=== PATIENT | female | born 1975 | race Caucasian/White ===

== ENCOUNTER 2018-08-31 21:53 | Inpatient (IN) | payer OTHER ==
[~2018-08-31] VITALS: Ht 162.6 cm; Wt 103.0 kg
--- NOTE | ~2018-08-31 | OP ---
[address] [address] OPERATIVE REPORT Name: ANNETTEREGLA M Room: [address] IN M.R.#: [id number] Admission: 08/31/18 Attend Phys: Trice Dos Santos MD Discharge: Date of : 77 Report #: [id number] THIS REPORT FOR: //name// CC: Kenzie Perez DO, PGY-3, dictating operative report on behalf of Dr. Merrill Ariza. PREOPERATIVE DIAGNOSES: Gallstone pancreatitis and acute cholecystitis. POSTOPERATIVE DIAGNOSES: Gallstone pancreatitis and acute cholecystitis. PROCEDURE PERFORMED: Laparoscopic cholecystectomy with intraoperative cholangiogram and Firefly evaluation of the biliary system. SURGEON: Merrill Ariza DO CO-SURGEON: Ajit Perez DO, PGY-3. PIT AND AUXILIARIES SUPERVISOR: None. ANESTHESIA: General and local. FINDINGS: Acute cholecystitis with a normal biliary anatomy. COMPLICATIONS: None. SPECIMEN: Gallbladder. ESTIMATED BLOOD LOSS: 20. HISTORY OF PRESENT ILLNESS: The patient is a 43-year-old female, who presented with right upper quadrant abdominal pain, was found to have acute pancreatitis, suspected to be related to gallstones. She did have some elevated LFTs that progressively improved, indicating that the stone likely passed. MRCP was negative. We elected to proceed with laparoscopic cholecystectomy with intraoperative cholangiogram. She agreed after risks, complications and benefits were discussed at length. DESCRIPTION OF PROCEDURE: After consent was obtained, she was taken to the operating room, placed in supine position, SCDs applied to the bilateral lower extremities, safety belt placed across the patient's waist. Antibiotics were given for surgical prophylaxis. The patient underwent general anesthesia and intubation without any complication. The patient was then prepped and draped in the standard sterile fashion. Timeout was performed to confirm the patient and procedure. A vertical incision was made just above the umbilicus with an 11 blade scalpel. Electrocautery was used for hemostasis [place] [address] OPERATIVE REPORT Name: REGLA BRYANT Room: [address] IN [facility]#: [id number] Admission: 08/31/18 Attend Phys: Trice Dos Santos MD Discharge: Date of : 77 Report #: [id number] the level of the fascia. Once the fascia was encountered, it was scored with electrocautery and grasped between 2 Kochers. Hemostat was used to bluntly enter the peritoneum. Two stitches of 0 Vicryl were placed on either side of the fascia. A 5 mm Pierce trocar was inserted into the abdomen. Insufflation was initiated without complication. The camera was inserted into the abdomen. Intraabdominal contents were inspected. There was evidence of some edema in the right upper quadrant around the gallbladder. Second 11 mm trocar was placed subxiphoid under direct visualization. The patient was placed in reverse Trendelenburg and rotated towards the left. The gallbladder was then seen underneath the edge of the liver with multiple adhesions indicating acute cholecystitis. Two more 5 mm trocars were placed in the right upper quadrant under direct visualization. Gallbladder was grasped and elevated. All the adhesions to the gallbladder were taken down with hook electrocautery. Once the adhesions were taken down safely, Firefly was used to evaluate the biliary system. There was a slight evidence of where the cystic duct would be. The common bile duct could be seen on the medial and inferior aspect of the gallbladder and this was well out of our operative field. Attention was then turned towards dissecting out the cystic duct. This was done with hook electrocautery and blunt dissection with the [place]. Once the cystic duct was isolated and could be seen going easily up into the gallbladder, Firefly was again initiated confirming that this was away from our common bile duct, could be seen going down into the common bile duct. Once the cystic duct was completely cleaned off, a clip was placed at the most proximal portion of the duct and it was cut just below this clip. An Angiocath was inserted in the abdomen and our cholangiogram catheter was placed into the cystic duct. Another clip was placed to secure this catheter. At this time, fluoroscopy was brought into the room and the biliary system was evaluated with contrast. Contrast could be seen flowing easily down into the cystic duct, common bile duct and into the duodenum without any evidence of obstruction. Pictures were taken and saved. After we were certain that there was no cystic or common bile duct or cystic duct obstruction, the catheter was removed from the abdomen, 3 clips were placed on the distal end of the cystic duct and the structure was cut. Attention was then turned towards isolating the cystic artery, and the cystic artery was just medial to where our cystic duct was cut. This was isolated using a combination of hook electrocautery and [place] dissection. Once the cystic artery was easily seen going up into the gallbladder, 2 clips were placed, one distal and one proximal on the structure and it was cut. Hook electrocautery was then used to dissect the gallbladder off the edge of the liver. Hemostasis was completely ensured in the liver bed. The gallbladder was placed into the laparoscopic EndoCatch bag. The liver bed was inspected for hemostasis. Once hemostasis was completely ensured, we did look back at our clips. There was no evidence of bile or blood leak from the clips, indicating good placement. All trocars were then removed under direct visualization. The gallbladder and its contents were removed from the supraumbilical trocar site. There was evidence of cholelithiasis and cholecystitis. Supraumbilical fascia was closed with 2 stitches of 0 Vicryl in a [id number] [place] [address] OPERATIVE REPORT Name: REGLA BRYANT Room: [address] IN [facility].#: [id number] Admission: 08/31/18 Attend Phys: Trice Dos Santos MD Discharge: Date of : 77 Report #: [id number] incisions were closed with 4-0 Monocryl. Sterile dressings were applied. All counts were correct x 2 at the end of the case. The patient was awoken from general anesthesia and sent to PACU in stable condition. By: 0732 [id number] Perez DO /raj
[2018-08-31 22:04] VITALS: BP 144/54
[2018-08-31 22:27] LABS: ABSOLUTE EOSINOPHILS 0.1 thou/uL (0.0-0.7); ABSOLUTE LYMPHOCYTES 2.8 thou/uL (0.8-5.3); ABSOLUTE MONOCYTES 0.4 thou/uL (0.0-1.2); ABSOLUTE NEUTROPHILS 7.1 thou/uL (1.6-8.1); BASOPHILS 0.3 %; EOSINOPHILS 1.1 %; HEMATOCRIT 41.8 % (37.0-47.0); LYMPHOCYTES 26.8 %; MCH 30.4 pg (26.0-34.0); MCHC 33.5 g/dL (28.0-37.0); MCV 90.9 fL (80.0-100.0); MONOCYTES 4.2 %; NUCLEATED RBCS 0 /100WBC; PLATELET COUNT* 214 thou/uL (150-400); POLYS 67.6 %; RDW-CV 13.1 % (10.5-14.5); WBC 10.5 thou/uL (4.0-11.0)
[2018-08-31 22:28] LABS: URINE BILIRUBIN NEGATIVE (Negative); URINE BLOOD NEGATIVE (Negative); URINE CLARITY CLEAR; URINE COLOR YELLOW; URINE GLUCOSE-RANDOM NEGATIVE (Negative); URINE KETONES NEGATIVE (Negative); URINE LEUKOCYTES-REFLEX NEGATIVE (Negative); URINE NITRITE-REFLEX NEGATIVE (Negative); URINE PROTEIN NEGATIVE (Negative); URINE SPECIFIC GRAVITY <= 1.005 (1.005-1.030); URINE UROBILINOGEN 0.2 E.U./dl (0.2-1.0)
[2018-08-31 22:44] LABS: CALCIUM 9.1 mg/dL (8.5-10.1); CREATININE 0.9 mg/dL (0.6-1.3); POTASSIUM 3.3 mmol/L (3.5-5.1)
[2018-08-31 22:49] LABS: ALBUMIN 3.9 g/dL (3.4-5.0); TOTAL BILIRUBIN 1.4 mg/dL (<0.1-1.0)
[2018-09-01 00:41] VITALS: BP 113/69
[2018-09-01 00:45] VITALS: BP 137/79
--- NOTE | 2018-09-01 01:21 | NUR ---
0032 ALERT AND ORIENTED X 4 FEMALE PATIENT TO ROOM 109 BY CART FROM ER IN STABLE CONDITION. TRANSFERED SBA FROM CART TO BR. VOID WITHOUT DIFFICULTY. ADMISSION ROUTINES IN PROGRESS. GI CONSULT AM. VITAL SIGNS STABLE. ABDOMINAL PAIN 07/27. PAIN MED PROVIDED PER ORDER. NO NAUSEA. ORIENTED TO ROOM, BED, ROUTINES AND PLAN OF CARE. PATIENT VERBALIZES UNDERSTANDING AND IN AGREEMENT. AT BEDSIDE. CONTINUE TO MONITOR.
--- NOTE | 2018-09-01 05:26 | NUR ---
PATIENT RESTING QUIETLY AT HOURLY ROUNDS FROM ARRIVAL TO UNIT. MEDICATED X 1 ONLY OF THIS WRITING SINCE ARRIVAL TO UNIT. AT BEDSIDE. IVF'S PER ORDER. GI CONSULT THIS AM. CONTINUE TO MONITOR.
--- NOTE | 2018-09-01 11:43 | NUR ---
MET WITH PT TO DISCUSS HOME SITUATION/DC PLANNING. PT LIVES WITH SPOUSE, IS INDEPENDENT AND ACTIVE. USES NO EQUIPMENT. PT DENIES ANY DC NEEDS AT THIS TIME. WILL FOLLOW
[2018-09-01 17:05] VITALS: BP 115/63
--- NOTE | 2018-09-01 18:25 | NUR ---
ASSUMED CARE OF PAGTIENT AT APPROX 0730. ALERT AND ORIENTED X4. ASSESSMENT COMPLETED AND CHARTED. VSS ON ROOM AIR. COMPLAINTS OF NAUSEA AND PAIN MANAGED WITH IV MEDICATIONS. FLUIDS INFUSED ORDERED. PATIENT ADVANCED TO CLEAR LIQUID DIET BY GI THIS AFTERNOON, TOLERATED IT WELL. IV IN LEFT AC STARTED LEAKING, NEW LINE PLACED IN LEFT FOREARM. PATIENT UP AD CHRIS. HOURLY ROUNDS COMPLETED. CALL LIGHT WITHIN REACH. WILL CONTINUE TO MONITOR.
[2018-09-01 20:00] VITALS: BP 120/72
--- NOTE | 2018-09-02 05:14 | NUR ---
PT SLEPT MOST OF SHIFT. ASSESSMENT DOCUMENTED. IV PATENT, FLUIDS INFUSING. NO REPORTS OF PAIN THIS SHIFT, PT REPORTED MILD NAUSEA BUT DID NOT WANT NAUSEA MEDS. FAMILY AT BEDSIDE. WILL CONTINUE WITH PLAN OF CARE.
[2018-09-02 05:25] LABS: ABSOLUTE EOSINOPHILS 0.1 thou/uL (0.0-0.7); ABSOLUTE LYMPHOCYTES 2.2 thou/uL (0.8-5.3); ABSOLUTE MONOCYTES 0.3 thou/uL (0.0-1.2); BASOPHILS 0.3 %; EOSINOPHILS 2.5 %; HEMATOCRIT 34.8 % (37.0-47.0); LYMPHOCYTES 38.9 %; MCH 30.9 pg (26.0-34.0); MCHC 33.9 g/dL (28.0-37.0); MCV 91.2 fL (80.0-100.0); MONOCYTES 5.9 %; MPV 9.7 fl. (7.2-11.1); NUCLEATED RBCS 0 /100WBC; PLATELET COUNT* 154 thou/uL (150-400); POLYS 52.4 %; RBC 3.81 mil/uL (4.20-5.00); RDW-CV 12.9 % (10.5-14.5); WBC 5.6 thou/uL (4.0-11.0)
[2018-09-02 05:34] LABS: HEMOGLOBIN 11.8 gm/dL (12.0-15.0)
[2018-09-02 05:47] LABS: CALCIUM 8.8 mg/dL (8.5-10.1); CREATININE 0.8 mg/dL (0.6-1.3); POTASSIUM 3.9 mmol/L (3.5-5.1)
[2018-09-02 07:20] LABS: ALBUMIN 2.8 g/dL (3.4-5.0); DIRECT BILIRUBIN 0.4 mg/dL (<0.1-0.3); TOTAL BILIRUBIN 1.1 mg/dL (<0.1-1.0); TOTAL PROTEIN 5.7 g/dL (6.4-8.2)
[2018-09-02 07:50] VITALS: BP 132/78
[2018-09-02 16:00] VITALS: BP 138/80
--- NOTE | 2018-09-02 18:59 | NUR ---
ASSUMED CARE OF PATIENT AT APPROX 0730. ALERT AND ORIENTED X4. ASSESSMENT COMPLETED AND CHARTED. VSS ON ROOM AIR. NO COMPLAINTS OF PAIN OR NAUSEA. FLUIDS INFUSED ORDERED. PATIENT TO PACU AT APPROX 1600 AND HAS NOT RETURNED TO UNIT AT THIS TIME. HOURLY ROUNDS COMPLETED WHILE ON UNIT. WILL CONTINUE TO MONITOR UPON RETURN TO UNIT.
[2018-09-02 21:05] VITALS: BP 148/84
[2018-09-03] VITALS: BP 145/70
[2018-09-03 04:00] VITALS: BP 116/67
[2018-09-03 04:20] LABS: ABSOLUTE LYMPHOCYTES 0.8 thou/uL (0.8-5.3); ABSOLUTE MONOCYTES 0.2 thou/uL (0.0-1.2); ABSOLUTE NEUTROPHILS 8.4 thou/uL (1.6-8.1); BASOPHILS 0.3 %; HEMATOCRIT 37.2 % (37.0-47.0); HEMOGLOBIN 12.4 gm/dL (12.0-15.0); LYMPHOCYTES 8.9 %; MCH 30.6 pg (26.0-34.0); MCHC 33.4 g/dL (28.0-37.0); MCV 91.5 fL (80.0-100.0); MONOCYTES 2.1 %; MPV 9.5 fl. (7.2-11.1); NUCLEATED RBCS 0 /100WBC; PLATELET COUNT* 187 thou/uL (150-400); POLYS 88.7 %; RBC 4.06 mil/uL (4.20-5.00); RDW-CV 12.6 % (10.5-14.5); WBC 9.5 thou/uL (4.0-11.0)
[2018-09-03 04:36] LABS: ALBUMIN 2.8 g/dL (3.4-5.0); CALCIUM 8.8 mg/dL (8.5-10.1); CREATININE 0.7 mg/dL (0.6-1.3); POTASSIUM 3.8 mmol/L (3.5-5.1); TOTAL BILIRUBIN 0.8 mg/dL (<0.1-1.0); TOTAL PROTEIN 6.5 g/dL (6.4-8.2)
--- NOTE | 2018-09-03 06:23 | NUR ---
Arrived to floor at 2105. She had a Lap Sammi. She has lapsites x 4 w/gauze and medipore tape that are all dry and intact. She has abdominal pain and has been requesting IV morphine for pain every 2 hours. Vitals are stable, roomair sat is > 96%. She is up independently to the bathroom, she voided adequately post op. She denies nausea. She has tolerated oral fluids and some sherbert this shift. She has slept intermittenly.
[2018-09-03 10:17] VITALS: BP 116/67
[2018-09-03] MEDS ORDERED: NORCO 5-325 TA1 EAC1 PO (10:22)
[2018-09-03 10:42] VITALS: BP 116/67
--- NOTE | 2018-09-03 10:44 | NUR ---
ASSESSMENT COMPLETE. PT GIVEN DC INSTRUCTIONS AND PRESCRIPTION FOR PAIN MEDICATION. PT VERBALIZES UNDERSTANDING. PT HAS FOLLOW UP APPOINTMENT MADE WITH DR VELÁSQUEZ NEXT WEEK. IV TAKEN OUT WITHOUT COMPLICATION. PT TOLERATED BREAKFAST. SEE ASSESSMENT AND VITALS FOR OTHER DETAILS.
--- NOTE | 2018-09-03 20:16 | CON ---
[address] [address] CONSULTATION Name: REGLA BRYANT Room: [address] IN M.R.#: [id number] Admission: 08/31/18 Attend Phys: Trice Dos Santos MD Discharge: 09/03/18 Date of : 77 Report #: [id number] THIS REPORT FOR: //name// CC: Kenzie Dos Santos DICTATED BY: Mena Florence [facility] DATE OF SERVICE: 09/01/2018 Please note at the time of this dictation, the patient was seen and physically examined by myself. REASONS FOR CONSULTATION: Abdominal pain, elevated liver function tests, elevated lipase, and nausea. HISTORY OF PRESENT ILLNESS: This is a 43-year-old female, who presented to the emergency room with significant right upper quadrant pain and nausea that was significantly worse than her previous 2 episodes that she has had of this similar pain. She did experience some nausea with this; however, previously, her pain had gone away on its own on the second episode and did not need to seek any further evaluation. Her first episode, which was about 2 months ago, she went to [facility]. CT, ultrasound, and labs were all completely normal at that time. She was given some pain medicine and told to go home. The second episode occurred on her way to [place] for vacation. She states it was very mild and she was able to work through it and did not reoccur. It was very short lived. However, this third episode was significantly worse. The patient has lost a total of about 75 pounds since March when she underwent a gastric sleeve operation with Dr. Issac ojeda at [facility]. The patient has never seen any GI providers in the past. ALLERGIES: No known drug allergies. MEDICATIONS FROM HOME: None. PAST MEDICAL HISTORY: Negative. PAST SURGICAL HISTORY: Gastric sleeve with hernia repair in 03/2018. FAMILY HISTORY: Sister, ovarian cancer stage 4, otherwise negative. SOCIAL HISTORY: ; denies any alcohol, tobacco, or illegal drug use at this time. REVIEW OF SYSTEMS: Twelve-point review [place] [address] CONSULTATION Name: REGLA BRYANT Room: [address]#: [id number] Admission: 08/31/18 Attend Phys: Trice Dos Santos MD Discharge: 09/03/18 Date of : 77 Report #: [id number] except what is mentioned in the HPI. PHYSICAL EXAMINATION: VITAL SIGNS: Temperature 36.8, pulse 99, respirations 16, and blood pressure 137/79. HEART: Regular rate and rhythm. LUNGS: Clear. ABDOMEN: Soft, positive bowel sounds in all 4 quadrants with some right upper quadrant tenderness noted to palpation. LABORATORY DATA: Hemoglobin 14, white count is 10.5, platelets 214, GFR 69, total bilirubin 1.4, alkaline phosphatase 80, ALT 74, AST is 117, and lipase is 2594. IMAGING: CT shows gallbladder distention. Pancreas is completely normal with no ductal dilatation. Ultrasound shows multiple layering calculi with thickening and distention of the gallbladder. IMPRESSION: 1. Right upper quadrant pain. 2. Nausea. 3. Elevated liver function tests. 4. Elevated lipase. 5. Recent weight loss of greater than 70 pounds since March. 6. Family history of ovarian cancer, sister, stage 4. PLAN: 1. MRCP today at 1300. 2. Rechecking CBC and CMP tomorrow in the morning. 3. Further recommendations will depend on MRCP and when Dr. Smart sees the patient later to make further recommendations. 4. The patient will need an outpatient colonoscopy given her strong family history of ovarian cancer in a sister in her 40s. Thank you for allowing us to participate in this patient's care. Please do not hesitate to call with any questions in regard to this consult. <ELECTRONICALLY SIGNED> By: Robert Smart MD 09/03/182015 1226 1933Robert Smart MD /nt
--- NOTE | 2018-09-04 18:06 | PATH ---
[address] [address] PATHOLOGY RPT PROCEDURE Name: REGLA BRYANT Room: [address] IN ..#: [id number] Admission: 08/31/18 Date of : 77 Discharge: 09/03/18 Report #: [id number] Path Case #: [id number] [facility] Accession Number: [id number] . 01 Material submitted: . gallbladder - GALLBLADDER . 01 Clinical history: . Acute cholecystitis with cholelithiasis. . 02 Diagnosis: Gallbladder: - Chronic cholecystitis, cholesterolosis and cholelithiasis. (LUI:philip; 09/04/2018) MBR/09/04/2018 . 02 Electronically signed: . Aston Bailey MD, Pathologist NPI- [id number] . 01 Gross description: . Received in formalin labeled "Jerzy, Regla, gallbladder" is an intact cholecystectomy specimen measuring 7.3 x 3.2 x 3.0 cm. The serosa is smalls-green and smooth and the specimen is opened to reveal dark green velvety mucosa with extensive yellow stippling without polyps or masses. The average wall thickness is 0.2 cm. Calculi are present, which are yellow-green, bosselated, measuring in aggregate 5.0 x 3.5 x 0.5 cm, and range from 0.1-0.3 cm in greatest dimension. District Extension Service Agent sections of the fundus and body and the cystic duct margin are submitted in A1. ([facility]; 09/03/2018) SYC/SYC . 02 Pathologist provided ICD-10: K80.10, K82.4 . 02 CPT . 000264 Specimen Comment: A courtesy copy of this report has been sent to Specimen Comment: [phone], , . Specimen Comment: Report sent to SAUL Rojas / DR GONZALEZ Performed at: [address], [place], [place] [id number] MD Rufino Álvarez MD Phone: [phone] Performed at: 02 [facility] [address], [place], [place] [id number] MD Aston Bailey MD Phone: [phone]
== END 2018-09-03 10:42 | disposition home or self-care (01) | DRG 417 ==
LOC: M.ERS 21:53 → M.TBA-ER 23:48 → M.ORTHSURG 23:48
PROVIDERS: Internal Medicine; Nurse Practitioner Family; Surgery; ADMIT Family Medicine
PROC: BF121ZZ Fluoroscopy of Gallbladder using Low Osmolar Contrast (ICD-10-PCS; principal; 2018-08-31)
PROC: 0FT44ZZ Resection of Gallbladder, Percutaneous Endoscopic Approach (ICD-10-PCS; principal; 2018-08-31)
DX: K80.00 Calculus of gallbladder with acute cholecystitis without obstruction (principal); K85.10 Biliary acute pancreatitis without necrosis or infection; E80.6 Other disorders of bilirubin metabolism; R74.0 Nonspecific elevation of levels of transaminase and lactic acid dehydrogenase [LDH]; E87.6 Hypokalemia; E66.9 Obesity, unspecified; E86.0 Dehydration; K43.9 Ventral hernia without obstruction or gangrene; Z80.41 Family history of malignant neoplasm of ovary; Z68.38 Body mass index [BMI] 38.0-38.9, adult